=== PATIENT | female | born 1995 | race Caucasian/White ===

== ENCOUNTER 2017-03-15 14:12 | Emergency (ER) | payer OTHER ==
[~2017-03-15] VITALS: Ht 160 cm; Wt 60.0 kg
[2017-03-15 14:19] VITALS: Ht 160 cm; Wt 60.0 kg
[2017-03-15 14:46] LABS: URINE BLOOD (Dip) POC 2+ (NEGATIVE)
--- NOTE | 2017-03-15 14:57 | ERD ---
ER Documentation Chief Complaint Date/Time DATE: 03/15/17 TIME: 14:54 Chief Complaint pt has IUD , pt is having vaginal bleeding and lower abd cramping x 4 days HPI This is a 22-year-old female presenting to the emergency department for vaginal bleeding and lower abdominal cramping 4 days. Patient states she is having moderate bright red bleeding with multiple moderately sized blood clots. Patient complains of dysuria and possible hematuria. No urinary frequency or urinary urgency. No nausea, patient states she had an IUD placed 3 months ago vomiting or diarrhea. And has not had a menstrual period. Patient states last menstrual period was about 4 months ago. Denies dizziness, fatigue or weakness. No syncopal episodes. No chest pain or chest pressure. No difficulty breathing or shortness of breath. ROS All systems reviewed and are negative except as per history of present illness. Medications Home Meds Active Scripts Ibuprofen* (Motrin*) 600 Mg Tab, 600 MG PO Q6, #15 TAB Prov:ANGELITA WEBER NP 03/15/17 Allergies Allergies: Coded Allergies: No Known Allergy (Unverified , 03/15/17) PMhx/Soc Medical and Surgical Hx: pt denies Medical Hx, pt denies Surgical Hx Hx Alcohol Use: No Hx Substance Use: No Hx Tobacco Use: No Smoking Status: Never smoker Physical Exam Vitals Vital Signs Date Time Temp Pulse Resp B/P Pulse Ox O2 Delivery O2 Flow Rate FiO2 03/15/17 14:19 98.4 78 19 126/61 99 Physical Exam Const: No acute distress, alert, oriented to person place and time. Head: Atraumatic Eyes: Normal Conjunctiva ENT: Normal External Ears, Nose and Mouth. Neck: Full range of motion..~ No meningismus. Resp: Clear to auscultation bilaterally. No wheezing, rhonchi or crackles. No stridor or labored breathing. Cardio: Regular rate and rhythm, no murmurs Abd: Soft, non tender, non distended. Normal bowel sounds Skin: No petechiae or rashes Back: No midline or flank tenderness Ext: No cyanosis, or edema Neur: Awake and alert Psych: Normal Mood and Affect Result Diagram: 03/15/17 1455 03/15/17 1455 Results 24 hrs Laboratory Tests Test 03/15/17 14:50 03/15/17 14:55 Bedside Urine pH (LAB) 7.0 Bedside Urine Protein (LAB) Trace Bedside Urine Glucose (UA) Negative Bedside Urine Ketones (LAB) Negative Bedside Urine Blood 2+ Bedside Urine Nitrite (LAB) Negative Bedside Urine Leukocyte Esterase (L Negative White Blood Count 7.310^3/ul Red Blood Count 4.7210^6/ul Hemoglobin 14.3g/dl Hematocrit 41.0% Mean Corpuscular Volume 86.9fl Mean Corpuscular Hemoglobin 30.3pg Mean Corpuscular Hemoglobin Concent 34.9g/dl Red Cell Distribution Width 12.1% Platelet Count 74235^3/UL Mean Platelet Volume 8.8fl Neutrophils % 68.9% Lymphocytes % 18.9% Monocytes % 10.0% Eosinophils % 1.1% Basophils % 0.7% Nucleated Red Blood Cells % 0.0/100WBC Neutrophils # 5.010^3/ul Lymphocytes # 1.410^3/ul Monocytes # 0.710^3/ul Eosinophils # 0.110^3/ul Basophils # 0.110^3/ul Nucleated Red Blood Cells # 0.010^3/ul Sodium Level 143mmol/L Potassium Level 3.7mmol/L Chloride Level 102mmol/L Carbon Dioxide Level 25mmol/L Anion Gap 20 Blood Urea Nitrogen 8mg/dl Creatinine 0.66mg/dl Glucose Level 71mg/dl Calcium Level 9.5mg/dl Current Medications Medications (Trade) Dose Ordered Sig/Mikey Route PRN Reason Start Time Stop Time Status Last Admin Dose Admin Ibuprofen (Motrin) 600 mg ONCE ONCE PO 03/15/17 15:00 03/15/17 15:01 DC 03/15/17 15:04 Procedures/MDM MDM: This is a 22-year-old female presenting to emergency department for vaginal bleeding and lower abdominal cramping 4 days. Patient had a Nexplanon IUD placed 3 months ago and states she has not had a menstrual period since then. Last menstrual period was 4 months ago. Patient also complains of dysuria and possible hematuria. Patient states she has some burning with urination. CBC, CMP, urine dip, urine and ultrasound pelvis were ordered. Patient given ibuprofen 600 mg p.o. Patient appears stable. States pain has improved. Vitals remain stable. Differential diagnosis includes but not limited to ectopic , ovarian torsion, missed , normal , subchorionic hemorrhage, ruptured ovarian cyst, PCOS, PID, gonorrhea, chlamydia, HSV, UTI, pyelonephritis. Patient is appropriate for outpatient management and will be given prescription for ibuprofen. Instructed patient to follow-up with [facility] [employer] [facility] in the next 24-48 hours for reassessment and additional management. Resources for [employer] [employer] [facility] provided. Return to ED sooner for any high fever, chest pain, difficulty breathing, shortness breath, wheezing, vomiting, diarrhea, abdominal pain or any new or worsening symptoms. Patient verbalizes understanding. All questions answered at discharge. Departure Diagnosis: Primary Impression: Pelvic pain Additional Impression: Dysfunctional uterine bleeding Condition: Stable ANGELITA WEBER NP Mar 15, 2017 14:57
[2017-03-15] MEDS ORDERED: IBUPROFEN 600 MG TAB PO ONE (15:00)
[2017-03-15 15:20] LABS: CALCIUM 9.5 mg/dl (8.4-10.2); CREATININE 0.66 mg/dl (0.44-1.00); POTASSIUM 3.7 mmol/L (3.5-5.1)
[2017-03-15 15:24] LABS: BASOPHIL # 0.1 10^3/ul (0.0-0.1); BASOPHILS % 0.7 % (0.0-2.0); EOSINOPHILS # 0.1 10^3/ul (0.0-0.5); EOSINOPHILS % 1.1 % (0.0-7.0); HEMOGLOBIN 14.3 g/dl (12.0-16.0); LYMPHOCYTES # 1.4 10^3/ul (0.8-2.9); LYMPHOCYTES % 18.9 % (15.0-51.0); MEAN CORPUSCULAR HEMOGLOBIN 30.3 pg (29.0-33.0); MEAN CORPUSCULAR HGB CONC 34.9 g/dl (32.0-37.0); MEAN CORPUSCULAR VOLUME 86.9 fl (82.0-101.0); MEAN PLATELET VOLUME 8.8 fl (7.4-10.4); MONOCYTE # 0.7 10^3/ul (0.3-0.9); NEUTROPHILS % 68.9 % (39.0-77.0); PLATELET COUNT 390 10^3/UL (140-415); RED BLOOD COUNT 4.72 10^6/ul (4.20-5.40); RED CELL DISTRIBUTION WIDTH 12.1 % (11.5-14.5); WHITE BLOOD COUNT 7.3 10^3/ul (4.8-10.8)
--- NOTE | 2017-03-15 15:44 | RADRPT ---
PROCEDURE: US Pelvis. CLINICAL INDICATION: Vaginal bleeding, pelvic pain TECHNIQUE: Multiple sonographic images of the pelvis were obtained utilizing a transabdominal and endovaginal technique. The images were reviewed on a PACS workstation. COMPARISON: None. FINDINGS: The uterus is anteverted and measures 7.8 x 6 x 3.7 cm. The endometrial echo complex is normal and m easures 3 mm. An IUD is present in good positioning. There is no evidence for free fluid. The right ovary has a normal echotexture and measures 3 x 2 x 1 .6 cm . The left ovary has a normal echotexture and measures 2.7 x 1.8 x 1.7 cm. No adnexal masses are noted. IMPRESSION: Unremarkable pelvic ultrasound. IUD in place. RPTAT: EE .Yesenia Dailey MD, Date Time Electronically viewed and signed by .Yesenia Dailey MD, on 03/15/2017 15:44 .F/
[2017-03-15 15:50] LABS: ADD SCAN DIFF NO
[2017-03-15] MEDS ORDERED: IBUP-1542 PO (16:03)
== END 2017-03-15 16:13 | disposition home or self-care (01) ==
LOC: FTE 14:12
DX: R10.2 Pelvic and perineal pain (principal); N93.8 Other specified abnormal uterine and vaginal bleeding
CPT/HCPCS: 76830; 76856; 80048; 81003; 85025; Z7502; Z7610

== ENCOUNTER 2018-01-08 10:29 | Emergency (ER) | END 2018-01-08 11:27 | disposition home or self-care (01) ==

== ENCOUNTER 2018-12-08 00:33 | Emergency (ER) | payer OTHER ==
[~2018-12-08] VITALS: Wt 63.6 kg
[~2018-12-08 00:33] MED LIST: GUAI-173 PO; IBUP-1542 PO; PHEN177S6 MM; POLY10DR19 BOTH EYES
--- NOTE | 2018-12-08 03:48 | ERD ---
ER Documentation Chief Complaint Chief Complaint VB X'S 1 DAY; 12 WEEKS PG HPI 23-year-old female, with EGA 12 weeks by LMP 09/03/18, presents to the emergency department, complaining of 1 day with vaginal spotting, associated with pelvic pain. ROS All systems reviewed and are negative except as per history of present illness. Medications Home Meds Active Scripts Phenol* (Throat Groton*) 177 Ml [place], 2 SPRAY MM Q2H PRN for SORE THROAT for 5 Days, SPRAY Prov:ROMELIA MORENONA C 01/08/18 Guaifenesin* (Tussin*) 100 Mg/5 Ml Syrup, 200 MG PO Q6 PRN for COUGH for 3 Days, ML Prov:JOSHSAMANTA C 01/08/18 Polymyxin B Sulfate-TMP* (Polymyxin B-TMP Eye Drops*) 10 Ml Drops, 1 DROP BOTH EYES TID for 7 Days, EA Prov:JOSHSAMANTA C 01/08/18 Ibuprofen* (Motrin*) 600 Mg Tab, 600 MG PO Q6, #15 TAB Prov:ANGELITA WEBER NP 03/15/17 Allergies Allergies: Coded Allergies: No Known Allergy (Unverified , 03/15/17) PMhx/Soc Hx Alcohol Use: No Hx Substance Use: No Hx Tobacco Use: No Physical Exam Vitals Vital Signs Date Temp Pulse Resp B/P (MAP) Pulse Ox O2 O2 Flow FiO2 Time Delivery Rate 12/08/18 98.2 76 18 139/65 99 00:39 (89) Physical Exam Const: No acute distress Head: Atraumatic Eyes: Normal Conjunctiva ENT: Normal External Ears, Nose and Mouth. Neck: Full range of motion. No meningismus. Resp: Clear to auscultation bilaterally Cardio: Regular rate and rhythm, no murmurs Abd: Soft, non tender, non distended. Normal bowel sounds Skin: No petechiae or rashes Back: No midline or flank tenderness Ext: No cyanosis, or edema Neur: Awake and alert Psych: Normal Mood and Affect Results 24 hrs Laboratory Tests Test 12/08/18 04:10 12/08/18 04:11 Bedside Urine pH (LAB) 6.5 Bedside Urine Protein (LAB) Negative Bedside Urine Glucose (UA) Negative Bedside Urine Ketones (LAB) Negative Bedside Urine Blood 3+ Bedside Urine Nitrite (LAB) Negative Bedside Urine Leukocyte Esterase (L Negative POC Beta HCG, Qualitative POSITIVE Departure Diagnosis: Primary Impression: Vaginal bleeding in patient at less than 20 weeks gestation Condition: Stable Additional Instructions: Thank you very much for allowing us to participate in your care. Your health and safety is our top priority at [facility]. Call your primary care doctor TOMORROW for an appointment during the next 2-4 days and bring all the information and medications prescribed. Have prescriptions filled and follow precisely the directions on the label. If the symptoms get worse and your provider is unavailable, return to the Emergency Department immediately. JORGE HERRERA MD Dec 08, 2018 03:48
[2018-12-08 05:32] VITALS: BP 107/53; PULSE 67; RESP 18
== END 2018-12-08 05:34 | disposition home or self-care (01) ==
LOC: FTE 00:33
DX: O20.9 Hemorrhage in early pregnancy, unspecified (principal); R10.2 Pelvic and perineal pain; Z3A.12 12 weeks gestation of pregnancy
CPT/HCPCS: 76801; 81003; 81025; Z7502